=== PATIENT | male | born 1965 | race Caucasian/White ===

== ENCOUNTER 2021-07-30 07:03 | Day surgery (SDC) | payer OTHER ==
[~2021-07-30 07:03] MED LIST: Lactated Ringers 1,000 ML IV SCH; Lidocaine 1%/Sod Bicarbonate in NS 8.4% 1 ML Syringe IDERM PRN; Sodium Chloride 0.9% 10 ML Syringe FLUSH PRN; Sodium Chloride 0.9% 10 ML Syringe FLUSH SCH
[2021-07-30] MEDS ORDERED: Propofol 200 MG/20 ML SDV ONE ×3 (07:18→08:47)
[2021-07-30] MEDS ORDERED: fentaNYL 100 MCG/2 ML SDV ONE ×2 (07:18→08:08)
[2021-07-30] MEDS ORDERED: Midazolam 1 MG/ML 2 ML SDV ONE (07:19)
[2021-07-30] MEDS ORDERED: Bupivacaine 0.5% 10 ML SDV ONE (07:40)
== END 2021-07-30 10:03 | disposition home or self-care (01) ==
LOC: JD.SDS 07:03
PROVIDERS: ATTEND Surgery
DX: Z12.11 Encounter for screening for malignant neoplasm of colon (principal); D12.3 Benign neoplasm of transverse colon; K62.1 Rectal polyp; D17.1 Benign lipomatous neoplasm of skin and subcutaneous tissue of trunk; K64.9 Unspecified hemorrhoids; K57.30 Diverticulosis of large intestine without perforation or abscess without bleeding; K64.8 Other hemorrhoids; Z87.891 Personal history of nicotine dependence
CPT/HCPCS: 21931; 45380; 45385; J2250; J2704; J3010; J3490; J7120; 00300

== ENCOUNTER 2024-08-17 08:43 | Day surgery (SDC) | payer BC ==
[~2024-08-17 08:43] MED LIST changes: -Lactated Ringers 1,000 ML IV SCH; -Lidocaine 1%/Sod Bicarbonate in NS 8.4% 1 ML Syringe IDERM PRN
[2024-08-17] MEDS ORDERED: EPINEPHrine 1 MG/ML SDV ONE (09:04)
[2024-08-17] MEDS: Lactated Ringers 1,000 ML IV SCH (09:05)
[2024-08-17] MEDS ORDERED: propofoL 500 MG/50 ML 50 ML ONE ×2 (09:48→11:18)
[2024-08-17] MEDS ORDERED: Propofol 200 MG/20 ML SDV ONE ×2 (09:49→12:05)
[2024-08-17] MEDS ORDERED: fentaNYL 100 MCG/2 ML SDV ONE ×2 (09:49→12:14)
[2024-08-17] MEDS ORDERED: Midazolam 1 MG/ML 2 ML SDV ONE (09:49)
[2024-08-17] MEDS ORDERED: Rocuronium 50 MG/5 ML Vial ONE ×2 (09:55→12:15)
[2024-08-17] MEDS ORDERED: Ropivacaine 0.5% 5 MG/ML 30 ML SDV ONE (10:00)
[2024-08-17] MEDS ORDERED: Lidocaine 1% 5 ML VIAL ONE (10:00)
[2024-08-17] MEDS ORDERED: fentaNYL 100 MCG/2 ML SDV IVPUSH PRN (10:24)
[2024-08-17] MEDS ORDERED: Ondansetron 4 MG/2 ML SDV IVPUSH PRN (10:24)
[2024-08-17] MEDS ORDERED: HYDROmorphone 0.5 MG/0.5 ML Syringe IVPUSH PRN (10:24)
[2024-08-17] MEDS ORDERED: ceFAZolin 2 GM Vial ONE (11:01)
[2024-08-17] MEDS ORDERED: Sugammadex Sodium 200 MG/2 ML VIAL IV ONE (11:14)
[2024-08-17] MEDS ORDERED: Labetalol 100 MG/20 ML MDV ONE (11:35)
[2024-08-17] MEDS ORDERED: Lactated Ringers 1,000 ML ONE ×2 (12:05→12:16)
[2024-08-17] MEDS ORDERED: Dexamethasone 4 MG/ML 5 ML MDV ONE (12:07)
== END 2024-08-17 14:40 | disposition home or self-care (01) ==
LOC: JD.SDS 08:43
PROVIDERS: ATTEND Orthopaedic Surgery
DX: M75.101 Unspecified rotator cuff tear or rupture of right shoulder, not specified as traumatic (principal); M75.41 Impingement syndrome of right shoulder; R73.03 Prediabetes
CPT/HCPCS: 29826; 29827; C1713; J0690; J1100; J1920; J2003; J2250; J2704; J2795; J3010; J7120; 01630; J3490